=== PATIENT | female | born 1960 | race Caucasian/White ===

== ENCOUNTER 2024-01-02 17:23 | Emergency (ER) | payer MEDICAID ==
[~2024-01-02] VITALS: Ht 167.6 cm; Wt 55.0 kg
[2024-01-02 17:31] VITALS: O2SAT 96
[2024-01-02] MEDS: HYDROCODONE/ACETAMINOPHEN 10/325MG TABLET PO ONE (18:17)
[2024-01-02] MEDS ORDERED: ACET-2708 MT (21:53)
[2024-01-02 22:18] VITALS: BP 124/80; PULSE 75; RESP 14; TEMP 97.7
== END 2024-01-02 22:20 | disposition home or self-care (01) ==
LOC: ER 17:23
DX: M25.552 Pain in left hip (principal); E11.9 Type 2 diabetes mellitus without complications; Z88.8 Allergy status to other drugs, medicaments and biological substances
CPT/HCPCS: 73502; 99283

== ENCOUNTER 2024-09-06 20:36 | Emergency (ER) | payer MEDICAID, OTHER ==
[~2024-09-06] VITALS: Ht 167.6 cm; Wt 48.0 kg
[~2024-09-06 20:36] MED LIST: ACET-2708 MT
[2024-09-06 20:42] VITALS: BP 145/69; PULSE 92; RESP 16; TEMP 98.3; O2SAT 96
== END 2024-09-07 01:13 | disposition left against medical advice (07) ==
LOC: ER 20:36
DX: M79.606 Pain in leg, unspecified (principal); Z53.21 Procedure and treatment not carried out due to patient leaving prior to being seen by health care provider

== ENCOUNTER 2024-11-25 12:41 | Emergency (ER) | payer MEDICAID, OTHER ==
[~2024-11-25] VITALS: Ht 162.6 cm; Wt 48.0 kg
[2024-11-25 12:47] VITALS: O2SAT 96
[2024-11-25 13:30] VITALS: BP 128/42; PULSE 98; RESP 20; TEMP 36.8; O2SAT 95
[2024-11-25] MEDS ORDERED: ASPIRIN 325MG EC TABLET PO NR (13:45)
[2024-11-25] MEDS ORDERED: NITROGLYCERIN 0.4MG TABLET SL SL NR (13:45)
[2024-11-25] MEDS ORDERED: SODIUM CHLORIDE 0.9% 500 ML IV ONE (13:45)
== END 2024-11-25 14:35 | disposition left against medical advice (07) ==
LOC: ER 12:41 → CANBEDREQ 16:10
DX: R31.9 Hematuria, unspecified (principal); E11.9 Type 2 diabetes mellitus without complications; Z88.8 Allergy status to other drugs, medicaments and biological substances; Z79.899 Other long term (current) drug therapy; Z53.29 Procedure and treatment not carried out because of patient's decision for other reasons
CPT/HCPCS: 71045; 93005; 99283; J7040; Z7610

== ENCOUNTER 2024-11-25 15:12 | Emergency (ER) | payer MEDICAID ==
[2024-11-25 15:20] VITALS: BP 140/59; PULSE 86; RESP 16; O2SAT 99
== END 2024-11-25 16:09 | disposition left against medical advice (07) ==
LOC: ER 15:12
DX: S01.81XA Laceration without foreign body of other part of head, initial encounter (principal); E11.9 Type 2 diabetes mellitus without complications; I10 Essential (primary) hypertension; Z88.8 Allergy status to other drugs, medicaments and biological substances; W19.XXXA Unspecified fall, initial encounter; Y93.89 Activity, other specified; Y92.89 Other specified places as the place of occurrence of the external cause; Y99.8 Other external cause status
CPT/HCPCS: 99284